=== PATIENT | female | born 1955 | race Caucasian/White ===

== ENCOUNTER 2020-04-15 09:14 | Emergency (ER) | payer MEDICARE, OTHER, SELFPAY ==
[2020-04-15 09:33] VITALS: BP 165/81; PULSE 72; RESP 16; TEMP 37; O2SAT 91; BMI 18.3
--- NOTE | 2020-04-15 09:41 | XR_ITS ---
WS: [id number] Right shoulder, 3 views, 04/15/2020 Clinical Data: fall, rt shoulder pain Comparison: None. Findings: There is a fracture of the lateral aspect of the right clavicle which is not displaced. The shoulder joint itself is normal. The AC joints intact. The adjacent right clavicle and right ribs are unremarkable. The soft tissues are normal. XR/XR shoulder RT min 2V* [id number] Impression: Fracture lateral aspect of the right clavicle.
--- NOTE | 2020-04-15 09:41 | XR_ITS ---
WS: [id number] Chest with right rib detail, 04/15/2020 Clinical Data: fall with rt rib pain Comparison: None. Findings: The lungs show no nodules, masses, or effusions. The heart is normal. No pneumonia or pneumothorax is seen. The ribs are intact. No rib fractures seen. No subcutaneous emphysema is present. XR/XR ribs RT mn 3V w CXR1V [id number] Impression: Negative chest with right rib detail.
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
[2020-04-15 09:51] VITALS: O2SAT 94
--- NOTE | 2020-04-15 09:57 | PC.NURSE ---
pt to XRAY by stretcher with tech
[2020-04-15] MEDS: HYDROcodone-acetaminophen 5-325 mg Tablet 1 TAB PO (10:06)
[2020-04-15 11:06] VITALS: BP 146/72; PULSE 72; RESP 18; O2SAT 97
--- NOTE | 2020-04-15 11:22 | DCPLANNER ---
Addendum entered by Jazmyn Davis 04/15/20 13:00: photography manager spoke with patient, she stated that she would like to get established with a primary care physician. photography manager called [facility], spoke with Stacey, gave clinic patients information. photography manager was told that patients information would be printed and reviewed, clinic will call patient with appointment information. Original Note: photography manager had message to schedule a follow up appointment for patient with ortho and to speak with patient about getting established with a primary care physician. photography manager called the ortho clinic, spoke with Tina, gave clinic patients information. photography manager was told that patients information would be printed and reviewed. Clinic will call patient with appointment information.
--- NOTE | 2020-04-17 11:09 | DCPLANNER ---
late entry - family caseworker had message to speak with patient about getting established with a primary care physician. project manager spoke with patient about getting a provider. project manager gave patient the different options in the [place] area, patient stated that she would like to schedule one with Dr. Kaplan. project manager called [facility], spoke with Stacey. Stacey stated that she would call patient and schedule an appointment.
--- NOTE | 2020-04-17 11:15 | DCPLANNER ---
Patient has a follow up appointment scheduled for Monday, June 29, [address] at 1:[address] Kaplan. Clinic called patient with appointment information.
--- NOTE | 2020-04-20 15:59 | DCPLANNER ---
Patient had a follow up appointment scheduled for 04.20.20 with ortho - patient did attend appointment.
--- NOTE | 2020-07-08 10:36 | DCPLANNER ---
Patient had a follow up appointment scheduled with [facility] - patient did attend appointment.
== END 2020-04-15 11:10 | disposition home or self-care (01) ==
PROVIDERS: Emergency Provider Nurse Practitioner Family
DX: S42.024A Nondisplaced fracture of shaft of right clavicle, initial encounter for closed fracture (principal); S20.211A Contusion of right front wall of thorax, initial encounter; I10 Essential (primary) hypertension; W10.8XXA Fall (on) (from) other stairs and steps, initial encounter
CPT/HCPCS: 12345; 29240; 71101; 73030; 99283

== ENCOUNTER → 2020-05-04 14:31 | Outpatient (BNVA) | payer MEDICARE, OTHER, SELFPAY | PROVIDERS: Visit Provider Orthopaedic Surgery | DX: S42.031A Displaced fracture of lateral end of right clavicle, initial encounter for closed fracture (principal); X58.XXXA Exposure to other specified factors, initial encounter | CPT/HCPCS: 73000 ==

== ENCOUNTER → 2022-11-22 13:24 | Outpatient (BNVA) | payer MEDICARE, OTHER, SELFPAY | PROVIDERS: PCP Family Medicine Adult Medicine; Referring Provider Family Medicine Adult Medicine; Visit Provider Dermatology | DX: L57.0 Actinic keratosis (principal); L82.1 Other seborrheic keratosis; C44.629 Squamous cell carcinoma of skin of left upper limb, including shoulder; L81.4 Other melanin hyperpigmentation | CPT/HCPCS: 99203 ==

== ENCOUNTER → 2023-02-27 13:21 | Outpatient (BNVA) | payer MEDICARE, OTHER, SELFPAY | PROVIDERS: PCP Family Medicine Adult Medicine; Visit Provider Dermatology | DX: L57.0 Actinic keratosis (principal); L82.1 Other seborrheic keratosis; L81.4 Other melanin hyperpigmentation; D48.5 Neoplasm of uncertain behavior of skin | CPT/HCPCS: 17000; 99213 ==